=== PATIENT | female | born 1975 | race Caucasian/White ===

== ENCOUNTER 2021-02-24 19:03 | Emergency (ER) | payer MEDICAID ==
[~2021-02-24] VITALS: Ht 154.9 cm; Wt 72.6 kg
[2021-02-24 19:12] VITALS: BP_SYST 108
[2021-02-24] MEDS ORDERED: KETOROLAC TROMETHAMINE 30 MG VIAL IM ONE (20:00)
[2021-02-24] MEDS ORDERED: NACL 0.9% 1,000 ML IV ONE (20:00)
[2021-02-24] MEDS ORDERED: METH-634 PO (21:32)
[2021-02-24 21:38] VITALS: BP_SYST 116
== END 2021-02-24 21:38 | disposition home or self-care (01) ==
LOC: SED 19:03
DX: F07.81 Postconcussional syndrome (principal); R51.9 Headache, unspecified
CPT/HCPCS: 70450; 76376; 81025; 96372; 99284; J1885